=== PATIENT | male | born 1960 | race American Indian/Alaskan Native ===

== ENCOUNTER 2021-05-26 09:54 | Outpatient (CLI) | payer OTHER | END 2021-05-26 09:55 | disposition home or self-care (01) | LOC: PF 09:54 | PROVIDERS: ATTEND Internal Medicine | DX: Z02.71 Encounter for disability determination (principal); J44.9 Chronic obstructive pulmonary disease, unspecified; J18.9 Pneumonia, unspecified organism | CPT/HCPCS: 94010; 94729 ==

== ENCOUNTER 2021-11-16 10:31 | Outpatient (CLI) | payer OTHER ==
--- NOTE | 2021-11-16 13:51 | XRay Report ---
LEFT SHOULDER 3 VIEW(S) INDICATION / CLINICAL INFORMATION: LEFT SHOULDER PAIN COMPARISON: None available. FINDINGS: BONES / JOINT(S): No acute fracture or subluxation. No significant arthritis. SOFT TISSUES: No significant abnormality. ADDITIONAL FINDINGS: None. Signer Name: Bakari Hale MD Signed: 11/16/2021 1:47 PM Workstation Name: [id number]
--- NOTE | 2021-11-16 13:52 | XRay Report ---
LEFT TIBIA-FIBULA 2 VIEW(S) INDICATION / CLINICAL INFORMATION: TIB/FIB LEFT PAIN COMPARISON: None available. FINDINGS: BONES / JOINT(S): No acute fracture or subluxation. No significant arthritis. SOFT TISSUES: No significant abnormality. ADDITIONAL FINDINGS: None. Signer Name: Bakari Hale MD Signed: 11/16/2021 1:48 PM Workstation Name: [id number]
--- NOTE | 2021-11-16 13:53 | XRay Report ---
LEFT HIP 2 VIEW(S) INDICATION / CLINICAL INFORMATION: LEFT HIP PAIN COMPARISON: None available. FINDINGS: BONES / JOINT(S): No acute fracture or subluxation. Mild degenerative changes of the bilateral hip chani ints. SOFT TISSUES: No significant abnormality. ADDITIONAL FINDINGS: None. Signer Name: Bakari Hale MD Signed: 11/16/2021 1:48 PM Workstation Name: [email or web address] [email or web address] [id number]
== END 2021-11-16 10:32 | disposition home or self-care (01) ==
LOC: XRAY 10:31
PROVIDERS: ATTEND Internal Medicine
DX: M16.0 Bilateral primary osteoarthritis of hip (principal); M25.512 Pain in left shoulder; M79.662 Pain in left lower leg